=== PATIENT | female | born 1950 | race Caucasian/White ===

== ENCOUNTER 2021-09-25 12:07 | Emergency (ER) | payer MEDICARE, SELFPAY ==
[2021-09-25 12:08] VITALS: BP 139/85; PULSE 104; RESP 16; TEMP 36.1; O2SAT 96; BMI 39.8
--- NOTE | 2021-09-25 12:35 | VDUE_ITS ---
Reason For Study: swelling Right Proximal Right jugular vein is spontaneous, widely patent, phasic, with no intraluminal echogenicity noted. Right subclavian vein is spontaneous, widely patent, phasic, with no intraluminal echogenicity noted. Right Lower Arm Right radial vein is compressible. Right ulnar vein is compressible. Right Arm Right axillary vein is spontaneous, patent, phasic, competent, compressible and demonstrates augmentation. Right brachial vein is compressible. Right cephalic vein is compressible. Right basilic vein is compressible. Prelim to Dr. Ramirez. VL/Venous Duplex US, Unilateral Interpretation Summary No evidence for acute deep venous thrombosis[right] upper extremity with patent and compressible cephalic and basilic veins. Ordering Physician: Ben Ramirez Performed By: Eddie Reed RVT ?
--- NOTE | 2021-09-25 12:35 | EX.ED.UPPERE ---
HPI History of Present Illness HPI Narrative: Atraumatic right hand and distal forearm swelling. Did have a colonoscopy 2 weeks ago and an IV placed at that time had bruising. Denies pain or redness. She just said it feels swollen. Denies fever or chills. No prior history. No prior history of DVT or PE. Denies chest pain or shortness of breath. Chief Complaint: Upper Extremity Injury Informant: patient Occured/Mechanism Mechanism/Context: No injury and No blunt trauma Onset/Context/Timing Onset: Days Context: Gradual Onset Timing: Continuous Current Severity: Mild Maximum Severity: Mild Associated Symptoms Associated Symptoms: Negative for Parasthesia, Weakness or Loss of Funtion Narrative Narrative: 70-year-old female history of hypertension and high triglycerides. Had a colonoscopy in 1 to 2 weeks ago. Had bruising the dorsum of her hand. Symptoms seem to go away and get better but then on Wednesday noticed swelling in her right hand. She has been icing it and using Benadryl without any improvement. Said the swelling is actually little worse knots in her distal forearm. Denies any falls or trauma. No fever or chills. No redness. She is never had a blood clot before. She is never had swelling like this before. Prior similar symptoms: No Recent Illness/Hospitalization: No PFSH PFSH Medical History Hyperlipemia Hypertension Allergy/AdvReac Type Severity Reaction Status Date / Time oxycodone Allergy Rash Verified 09/25/21 12:08 Sulfa (Sulfonamide Allergy Other Verified 09/25/21 12:08 Antibiotics) Surgical History H/O abdominal hysterectomy H/O hernia repair Social History Smoking Status: Never smoker ROS ROS ED ROS Narrative Patient denies recent illness. Review of Systems ROS Unobtainable: Denies due to encephalopathy Constitutional Constitutional ED: Denies chills or fever(s) Eyes Eyes: Denies blurry vision ENT ENT ED: Denies ear pain Cardiovascular Cardiovascular: Denies chest pain Respiratory/Chest Respiratory/Chest: Denies cough or dyspnea Gastrointestinal Gastrointestinal: Denies abdominal pain Genitourinary Genitourinary ED: Denies dysuria or hematuria Musculoskeletal Musculoskeletal: Denies back pain Integumentary Denies abscess Neurologic Neurologic: Denies headache(s) Psychiatric Psychiatric: Denies anxiety Endocrine Endocrinology: Denies cold intolerance Hematologic/Lymphatic Hematologic/Lymphatic: Denies easy bleeding Allergic/Immunologic Allergic/Immunologic ED: Denies mouth swelling EXAM Physical Exam Narrative Exam Narrative: Six 10-year-old female no acute distress. Vital signs stable afebrile Const Vital Signs: 09/25/21 12:08 Temperature 96.9 F L Temperature Source Temporal Pulse Rate 104 H Respiratory Rate 16 Blood Pressure 139/85 H Blood Pressure Mean 103 Pulse Ox 96 Oxygen Delivery Method Room Air Positive well nourished, well developed and obese; Negative for cachectic, contractures or unkempt General Appearance ED: well developed and NAD; Negative for unkempt, cachectic, contractures, cyanotic or diaphoretic Nutritional Appearance: obese; Negative for cachectic HEENT Reports moist mucous membranes normocephalic and atraumatic; Negative for trauma or tenderness Eyes PERRL and EOMs intact bilaterally General Eye ED: Negative for other Neck full ROM and supple General: Negative for tenderness or other Lymph Lymphatic: Negative for other Chest Wall inspection of chest normal and palpation of chest normal Chest: Negative for other Resp normal respiratory effort and clear to auscultation bilaterally Effort and Inspection: Negative for pain with movement Auscultation: Negative for rales, rhonchi, wheezes or diminished lung sounds Cardio regular rate, regular rhythm, S1 normal heart sound, S2 normal heart sound and no murmurs Rate: Negative for bradycardia Rhythm: Negative for abnormal rhythm GI non-tender, non-distended and no masses Inspection: Negative for abdominal distention Auscultation: normoactive bowel sounds Palpation: soft; Negative for tender, guarding or rebound tenderness present Extremity normal to inspection and full ROM Extremity Narrative: Dorsum right hand mild swelling. Also distal third of the forearm. Normal radial pulse. No cellulitis. Normal tin assorter strength. Full flexion extension of right hand. Full flexion-extension right wrist. No lymphangitic streaking. No axillary lymphadenopathy. General Extremety ED: Negative for edema or other findings General Extremity: Negative for edema or other findings Neuro oriented x3, CN's II-XII intact bilaterally, moves all extremities and no focal motor deficits Sensorium / Orientation: alert, oriented to person, oriented to place and oriented to time; Negative for orientation impaired, lethargic or stuporous Motor Exam: strength 5/5 throughout Psych Appearance: Negative for unkempt Attitude: No agitated Mood & Affect: Negative for depressed, anxious or tearful Skin General Skin Exam: Negative for petechiae Lesions: no lesions Rashes: no rashes Trauma: no lacerations or abrasions; Negative for abrasion or laceration MDM MDM MDM Narrative Medical decision making narrative: 70-year-old had an IV placed 2 weeks ago having swelling in her dorsum of her right hand and right forearm. Concerns for DVT. Ultrasound being obtained. She has had no trauma. Does not need an x-ray. Clinically this is not cellulitis. Repeat exam unchanged. Noninvasive study was negative. No blood clot. She will be discharged home ice and elevate. Follow-up with your doctor if not improving. This appears to be soft tissue swelling and no clot or cellulitis. Discharge Plan Triage Chief Complaint: Upper Extremity Injury ED Provider: Ben Ramirez Dx/Rx/DC Orders Clinical Impression: Edema of hand Primary Care Provider: Carolyn Guerrier Referrals: Carolyn Guerrier MD [Primary Care Provider] - 10-14 Days if not better [facility] Doctor,Out of [Non-Staff] - Activity Restrictions/Additional Instructions: No blood clot. Ice and elevate your hand to decrease swelling. Follow-up with your doctor if not improving. Disposition Disposition: Home, Self Care
[2021-09-25 14:44] VITALS: BP 136/91; PULSE 89; RESP 16; O2SAT 93
== END 2021-09-25 14:52 | disposition home or self-care (01) ==
PROVIDERS: Emergency Provider Emergency Medicine; PCP Family Medicine; Visit Provider Emergency Medicine
DX: R60.0 Localized edema (principal); E78.5 Hyperlipidemia, unspecified; I10 Essential (primary) hypertension; E66.9 Obesity, unspecified
CPT/HCPCS: 93971; 99282